=== PATIENT | male | born 1975 | race Caucasian/White ===

== ENCOUNTER 2023-06-12 07:52 | Emergency (ER) | payer OTHER, BC ==
[~2023-06-12] VITALS: Ht 188 cm; Wt 103.0 kg
[2023-06-12 08:29] LABS: BASOPHILS 0.4 % (0-2); EOSINOPHILS 0.7 % (0-6); HEMOGLOBIN 15.4 g/dL (12.0-18.0); LYMPHOCYTES 15.2 % (24-44); MCH 30.8 (27-36); MCHC 34.2 g/dl (30-36); MONOCYTES 8.8 % (0-12); NEUTROPHILS 74.9 % (39-80); PLATELET COUNT 236 K/uL (140-440); RDW 14.2 (10.5-15.0)
[2023-06-12 08:47] LABS: ALBUMIN 4.3 g/dL (3.4-5.0); ALBUMIN/GLOBULIN RATIO 1.26 (1.1-2.4); ANION GAP 13.7 (7-21); BUN/CREATININE RATIO 16.49 (6.0-28.6); CREATININE, SERUM 0.97 mg/dL (0.70-1.30); POTASSIUM 3.7 mmol/L (3.5-5.1); PROTEIN, TOTAL 7.7 g/dL (6.4-8.2)
[2023-06-12 09:50] LABS: BILIRUBIN, URINE NEGATIVE (negative); BLOOD/HGB, URINE NEGATIVE (Negative); KETONE, URINE SMALL (Negative); LEUK ESTERASE, URINE NEGATIVE (negative); NITRITE, URINE NEGATIVE (negative)
[2023-06-12 10:30] VITALS: BP 157/83
== END 2023-06-12 10:30 | disposition home or self-care (01) ==
LOC: ED 07:52
PROVIDERS: Emergency Medicine
DX: S37.011A Minor contusion of right kidney, initial encounter (principal); V89.2XXA Person injured in unspecified motor-vehicle accident, traffic, initial encounter
CPT/HCPCS: 36415; 74177; 80053; 81003; 85025; Q9967